=== PATIENT | male | born 2000 | race Caucasian/White ===

== ENCOUNTER 2023-06-13 10:38 | Inpatient (IN) | payer SELFPAY ==
[~2023-06-13] VITALS: Ht 175.3 cm; Wt 92.4 kg
[2023-06-13] MEDS: ONDANSETRON HCL 4 MG/2 ML VIAL IVP ONE (11:00)
[2023-06-13] MEDS: SODIUM CHLORIDE 0.9% 1,000 ML IV ONE ×2 (11:00→12:57)
[2023-06-13 11:11] LABS: BASOPHILS % (AUTO) 0.3 % (0.0-2.0); EOSINOPHILS % (AUTO) 1.1 % (1.0-6.0); HEMATOCRIT 47.2 % (41-53); HEMOGLOBIN 15.6 g/dL (13.5-17.5); LYMPHOCYTES # (AUTO) 1.4 K/uL (1.0-4.8); LYMPHOCYTES % (AUTO) 17.2 % (22.0-44.0); MEAN CORPUSCULAR HEMOGLOBIN 29.5 pg (26.0-34.0); MEAN CORPUSCULAR HGB CONC 33.1 G/dL (31.0-37.0); MEAN CORPUSCULAR VOLUME 89 fL (80-100); MONOCYTES # (AUTO) 0.1 K/uL (0.1-1.0); MONOCYTES % (AUTO) 1.5 % (2.0-9.0); NEUTROPHILS # (AUTO) 6.7 K/uL (1.8-7.7); NEUTROPHILS % (AUTO) 79.9 % (40.0-70.0); PLATELET COUNT (AUTO) 178 K/uL (150-450); RED BLOOD CELL COUNT(AUTO) 5.29 MIL/uL (4.50-5.90); RED CELL DISTRIBUTION WIDTH 12.8 % (11.5-14.5); WHITE BLOOD COUNT (AUTO) 8.4 K/uL (4.5-11.0)
[2023-06-13] MEDS: NALOXONE HCL 1 MG/ML 2 ML SYRINGE IVP ONE ×2 (11:16→14:31)
[2023-06-13 11:21] LABS: ANION GAP 13 mmol/L (8-16); CARBON DIOXIDE 24 mmol/L (22-29); CHLORIDE 104 mmol/L (98-107); CREATININE 1.63 mg/dL (0.60-1.30); GLOMERULAR FILTR. RATE CALC 53 mL/min (>60); GLUCOSE,RANDOM 248 mg/dL (70-110); POTASSIUM 3.3 mmol/L (3.5-5.1); SODIUM SERUM 141 mmol/L (136-145); UREA NITROGEN, BLOOD 19 mg/dL (7-18)
[2023-06-13 11:27] LABS: ALANINE AMINOTRANSFERASE 163 U/L (12-78); ALBUMIN 3.3 g/dL (3.4-5.0); ALKALINE PHOSPHATASE 64 U/L (46-116); ASPARTATE AMINOTRANSFERASE 163 U/L (15-37); BILIRUBIN,TOTAL 0.2 mg/dL (0.1-1.0); TOTAL PROTEIN, SERUM 6.4 g/dL (6.4-8.2)
[2023-06-13 11:29] LABS: ACETAMINOPHEN < 2 mcg/mL (10-30)
[2023-06-13 11:33] LABS: B-TYPE NATRIURETIC PEPTIDE < 5 pg/mL (0-100)
[2023-06-13 11:38] LABS: ALCOHOL, BLOOD (SERUM) < 3 mg/dL (0-10)
[2023-06-13 11:43] LABS: SALICYLATE 1.8 mg/dL (2.8-20.0)
[2023-06-13 11:44] LABS: PH,URINE DRUG SCREEN 6.5 (5.0-8.0)
[2023-06-13 11:59] LABS: ALCOHOL, URINE DRUG SCREEN NEGATIVE (NEGATIVE); AMPHET/METH SCREEN,URINE POSITIVE (NEGATIVE); BARBITURATE SCREEN, URINE NEGATIVE (NEGATIVE); BENZODIAZEPINES SCREEN,URINE NEGATIVE (NEGATIVE); CANNABINOID SCREEN,URINE POSITIVE (NEGATIVE); COCAINE SCREEN,URINE NEGATIVE (NEGATIVE); METHADONE SCREEN, URINE NEGATIVE (NEGATIVE); OPIATE SCREEN,URINE NEGATIVE (NEGATIVE); PHENCYCLIDINE SCREEN,URINE NEGATIVE (NEGATIVE)
[2023-06-13] MEDS: VANCOMYCIN 1GM/WATER(PEG/NADA) 200 ML IV ONE (13:19)
[2023-06-13 14:00] LABS: TROPONIN I-HIGH SENSITIVITY 937 ng/L (<76)
[2023-06-13 14:01] LABS: LACTIC ACID 2.4 mmol/L (0.4-2.0)
[2023-06-13 15:23] LABS: COVID AG,FIA SOURCE NASAL SWAB
[2023-06-13 15:56] LABS: SARS-COV2 (COVID) ANTIGEN,FIA Negative (Negative)
[2023-06-13] MEDS: NALOXONE HCL 0.4 MG/ML VIAL IVP PRN (21:01)
[2023-06-13] MEDS ORDERED: HYDROCODONE/ACETAMINOPHEN 5-325 MG TABLET PO PRN (21:45)
[2023-06-13] MEDS ORDERED: POTASSIUM CHL 10 MEQ/WATER 50 ML IV PRN (21:45)
[2023-06-13] MEDS ORDERED: MORPHINE SULFATE 2 MG/ML SYRINGE IVP PRN (21:45)
[2023-06-13] MEDS ORDERED: MAGNESIUM HYDROXIDE SUSPENSION 30 ML UDCUP PO PRN (21:45)
[2023-06-13] MEDS ORDERED: ALBUTEROL SULFATE 2.5 MG/0.5 ML NEB SOLUTION NEB PRN (21:45)
[2023-06-13] MEDS ORDERED: ONDANSETRON HCL 4 MG/2 ML VIAL IVP PRN (21:45)
[2023-06-13] MEDS ORDERED: ZOLPIDEM TARTRATE 5 MG TABLET PO PRN (21:45)
[2023-06-13] MEDS ORDERED: IPRATROPIUM BROMIDE 0.5 MG/2.5 ML NEB SOLUTION NEB PRN (21:45)
[2023-06-13] MEDS ORDERED: BISACODYL 10 MG RECTAL RECTAL SUPPOSITORY PR PRN (21:45)
[2023-06-13 22:32] LABS: HEMATOCRIT 50.2 % (41-53); HEMOGLOBIN 16.9 g/dL (13.5-17.5); MEAN CORPUSCULAR HEMOGLOBIN 29.5 pg (26.0-34.0); MEAN CORPUSCULAR HGB CONC 33.6 G/dL (31.0-37.0); MEAN CORPUSCULAR VOLUME 88 fL (80-100); PLATELET COUNT (AUTO) 180 K/uL (150-450); RED BLOOD CELL COUNT(AUTO) 5.72 MIL/uL (4.50-5.90); WHITE BLOOD COUNT (AUTO) 18.1 K/uL (4.5-11.0)
[2023-06-13 22:47] LABS: ALANINE AMINOTRANSFERASE 173 U/L (12-78); ALBUMIN 3.6 g/dL (3.4-5.0); ALKALINE PHOSPHATASE 61 U/L (46-116); ANION GAP 10 mmol/L (8-16); ASPARTATE AMINOTRANSFERASE 130 U/L (15-37); BILIRUBIN,TOTAL 0.6 mg/dL (0.1-1.0); CALCIUM, TOTAL 8.9 mg/dL (8.8-10.5); CARBON DIOXIDE 27 mmol/L (22-29); CHLORIDE 103 mmol/L (98-107); CREATININE 1.28 mg/dL (0.60-1.30); GLOMERULAR FILTR. RATE CALC > 60 mL/min (>60); GLUCOSE,RANDOM 83 mg/dL (70-110); POTASSIUM 5.8 mmol/L (3.5-5.1); SODIUM SERUM 140 mmol/L (136-145); TOTAL PROTEIN, SERUM 6.9 g/dL (6.4-8.2); UREA NITROGEN, BLOOD 23 mg/dL (7-18)
[2023-06-13] MEDS: POTASSIUM CHLORIDE 20 MEQ ER TABLET PO PRN (22:54)
[2023-06-13 22:55] LABS: TROPONIN I-HIGH SENSITIVITY 2089 ng/L (<76)
[2023-06-13] MEDS: ONDANSETRON HCL 4 MG/2 ML VIAL IVP PRN (22:55)
[2023-06-13 22:59] LABS: BAND NEUTROPHILS % (MANUAL) 33 % (0-5); EOSINOPHILS % (MANUAL) 1 % (1-6); LYMPHOCYTES % (MANUAL) 4 % (22-44); MONOCYTES % (MANUAL) 2 % (2-9); SEGMENTED NEUTROPHILS % 60 % (40-70); TOTAL CELLS COUNTED 100
[2023-06-13] MEDS: SODIUM ZIRCONIUM CYCLOSILICATE 5 GM POWDER PACKET PO ONE (23:00)
[2023-06-13 23:16] LABS: APPEARANCE,URINE CLEAR (CLEAR); BILIRUBIN,URINE NEGATIVE (NEGATIVE); COLOR,URINE LIGHT YELLOW (YELLOW); GLUCOSE, URINE (UA) NEGATIVE (NEGATIVE); LEUKOCYTE ESTERASE ,URINE NEGATIVE (NEGATIVE); NITRATE,URINE NEGATIVE (NEGATIVE); OCCULT BLOOD,URINE NEGATIVE (NEGATIVE); PROTEIN,URINE NEGATIVE (NEGATIVE); SPECIFIC GRAVITIY, URINE 1.015 (1.003-1.030); UROBILINOGEN,URINE <=1.0 mg/dL (<=1.0)
[2023-06-13] MEDS: PIPERACILLIN/TAZO 3.375 GM/D5W 50 ML IV SCH (23:33)
[2023-06-13] MEDS: HEPARIN SODIUM,PORCINE 5,000 UNITS/ML VIAL IVP ONE (23:57)
[2023-06-14] MEDS ORDERED: HEPARIN SODIUM,PORCINE 5,000 UNITS/ML VIAL SQ SCH
[2023-06-14 00:01] LABS: INR 1.1 (0.9-1.1); PROTHROMBIN TIME 11.4 SEC (9.4-11.6)
[2023-06-14] MEDS: HEPARIN SODIUM 25000 UNITS/D5W 250 ML IV PRN (00:03)
[2023-06-14 00:24] LABS: RED CELL DISTRIBUTION WIDTH 13.1 % (11.5-14.5)
[2023-06-14 00:28] LABS: HEMATOCRIT 49.8 % (41-53); HEMOGLOBIN 16.7 g/dL (13.5-17.5); MEAN CORPUSCULAR HEMOGLOBIN 29.6 pg (26.0-34.0); MEAN CORPUSCULAR HGB CONC 33.5 G/dL (31.0-37.0); MEAN CORPUSCULAR VOLUME 88 fL (80-100); PLATELET COUNT (AUTO) 186 K/uL (150-450); RED BLOOD CELL COUNT(AUTO) 5.63 MIL/uL (4.50-5.90)
[2023-06-14] MEDS ORDERED: NALOXONE HCL 10 MG in DEXTROSE 5%-WATER 240 ML IV PRN (00:30)
[2023-06-14] MEDS: NALOXONE HCL 10 MG in DEXTROSE 5%-WATER 240 ML IV PRN (00:58)
[2023-06-14 01:09] LABS: BAND NEUTROPHILS % (MANUAL) 25 % (0-5); EOSINOPHILS % (MANUAL) 1 % (1-6); LYMPHOCYTES % (MANUAL) 5 % (22-44); MONOCYTES % (MANUAL) 3 % (2-9); SEGMENTED NEUTROPHILS % 66 % (40-70); TOTAL CELLS COUNTED 100
[2023-06-14] MEDS: DiphenhydrAMINE HCL 50 MG/ML VIAL IVP ONE (01:18)
[2023-06-14 05:30] LABS: HEMATOCRIT 44.6 % (41-53); HEMOGLOBIN 15.3 g/dL (13.5-17.5); MEAN CORPUSCULAR HEMOGLOBIN 29.8 pg (26.0-34.0); MEAN CORPUSCULAR HGB CONC 34.4 G/dL (31.0-37.0); MEAN CORPUSCULAR VOLUME 87 fL (80-100); PLATELET COUNT (AUTO) 165 K/uL (150-450); RED BLOOD CELL COUNT(AUTO) 5.14 MIL/uL (4.50-5.90); RED CELL DISTRIBUTION WIDTH 12.9 % (11.5-14.5); WHITE BLOOD COUNT (AUTO) 22.8 K/uL (4.5-11.0)
[2023-06-14] MEDS: SODIUM CHLORIDE 0.9% 500 ML IV ONE (06:43)
[2023-06-14 07:15] LABS: ANION GAP 8 mmol/L (8-16); CALCIUM, TOTAL 8.2 mg/dL (8.8-10.5); CARBON DIOXIDE 27 mmol/L (22-29); CHLORIDE 100 mmol/L (98-107); CREATININE 1.21 mg/dL (0.60-1.30); GLOMERULAR FILTR. RATE CALC > 60 mL/min (>60); GLUCOSE,RANDOM 106 mg/dL (70-110); POTASSIUM 4.3 mmol/L (3.5-5.1); SODIUM SERUM 135 mmol/L (136-145); UREA NITROGEN, BLOOD 20 mg/dL (7-18)
[2023-06-14 07:20] LABS: ALANINE AMINOTRANSFERASE 117 U/L (12-78); ALBUMIN 2.7 g/dL (3.4-5.0); ALKALINE PHOSPHATASE 46 U/L (46-116); ASPARTATE AMINOTRANSFERASE 72 U/L (15-37); BILIRUBIN,TOTAL 0.6 mg/dL (0.1-1.0); TOTAL PROTEIN, SERUM 5.7 g/dL (6.4-8.2)
[2023-06-14 07:25] LABS: TROPONIN I-HIGH SENSITIVITY 995 ng/L (<76)
[2023-06-14] MEDS: DOCUSATE SODIUM 100 MG CAPSULE PO SCH (07:38)
[2023-06-14] MEDS: PANTOPRAZOLE SODIUM 40 MG/VIAL IVP SCH (08:13)
[2023-06-14] MEDS: VANCOMYCIN HCL 1.5 GM in DEXTROSE 5%-WATER 250 ML IV SCH (08:13)
[2023-06-14 09:41] LABS: BAND NEUTROPHILS % (MANUAL) 26 % (0-5); LYMPHOCYTES % (MANUAL) 21 % (22-44); SEGMENTED NEUTROPHILS % 53 % (40-70); TOTAL CELLS COUNTED 100
[2023-06-14 09:42] LABS: RBC MORPHOLOGY COMMENT NORMAL RBC MORPH
[2023-06-14] MEDS: HEPARIN SODIUM,PORCINE 5,000 UNITS/ML VIAL IVP PRN (16:22)
[2023-06-14 17:42] VITALS: BP 96/59; PULSE 70; RESP 16; TEMP 98
[2023-06-14 19:38] VITALS: BP 105/63; PULSE 76; RESP 18; TEMP 98
[2023-06-14] MEDS ORDERED: SODIUM CHLORIDE 0.9% 500 ML IV ONE (20:39)
[2023-06-15 00:12] VITALS: BP 101/60; PULSE 86; RESP 18; TEMP 98.8
[2023-06-15 04:32] VITALS: BP 114/71; PULSE 84; RESP 19; TEMP 98.8
[2023-06-15] MEDS: ACETAMINOPHEN 325 MG TABLET PO PRN (06:20)
[2023-06-15 07:23] LABS: ANION GAP 4 mmol/L (8-16); CALCIUM, TOTAL 8.3 mg/dL (8.8-10.5); CARBON DIOXIDE 29 mmol/L (22-29); CHLORIDE 100 mmol/L (98-107); CREATININE 1.05 mg/dL (0.60-1.30); GLOMERULAR FILTR. RATE CALC > 60 mL/min (>60); GLUCOSE,RANDOM 94 mg/dL (70-110); POTASSIUM 4.1 mmol/L (3.5-5.1); SODIUM SERUM 133 mmol/L (136-145); UREA NITROGEN, BLOOD 14 mg/dL (7-18)
[2023-06-15 07:33] VITALS: BP 103/65; PULSE 77; RESP 19; TEMP 98.3
[2023-06-15 11:48] VITALS: BP 114/61; PULSE 62; RESP 14; TEMP 97.9
[2023-06-15 12:24] LABS: CREATINE KINASE, TOTAL ONLY 168 U/L (39-308)
[2023-06-15 15:23] VITALS: BP 102/62; PULSE 62; RESP 18; TEMP 97.8
[2023-06-15] MEDS ORDERED: SODIUM CHLORIDE 0.9% 500 ML IV ONE (17:48)
[2023-06-15 20:00] VITALS: BP 113/61; PULSE 63; RESP 18; TEMP 98.5
[2023-06-16] VITALS: BP 109/52; PULSE 62; RESP 16; TEMP 98.3
[2023-06-16 04:00] VITALS: PULSE 68
[2023-06-16 09:57] LABS: BASOPHILS % (AUTO) 0.4 % (0.0-2.0); EOSINOPHILS % (AUTO) 1.6 % (1.0-6.0); HEMATOCRIT 45.5 % (41-53); HEMOGLOBIN 15.4 g/dL (13.5-17.5); LYMPHOCYTES # (AUTO) 1.1 K/uL (1.0-4.8); LYMPHOCYTES % (AUTO) 9.4 % (22.0-44.0); MEAN CORPUSCULAR HEMOGLOBIN 29.4 pg (26.0-34.0); MEAN CORPUSCULAR HGB CONC 33.9 G/dL (31.0-37.0); MEAN CORPUSCULAR VOLUME 87 fL (80-100); MONOCYTES # (AUTO) 0.6 K/uL (0.1-1.0); MONOCYTES % (AUTO) 5.2 % (2.0-9.0); NEUTROPHILS # (AUTO) 9.8 K/uL (1.8-7.7); NEUTROPHILS % (AUTO) 83.4 % (40.0-70.0); PLATELET COUNT (AUTO) 150 K/uL (150-450); RED BLOOD CELL COUNT(AUTO) 5.23 MIL/uL (4.50-5.90); RED CELL DISTRIBUTION WIDTH 13.1 % (11.5-14.5); WHITE BLOOD COUNT (AUTO) 11.8 K/uL (4.5-11.0)
[2023-06-16 10:14] LABS: ALANINE AMINOTRANSFERASE 136 U/L (12-78); ALKALINE PHOSPHATASE 64 U/L (46-116); ASPARTATE AMINOTRANSFERASE 53 U/L (15-37); BILIRUBIN,TOTAL 0.6 mg/dL (0.1-1.0); CALCIUM, TOTAL 8.9 mg/dL (8.8-10.5); CARBON DIOXIDE 29 mmol/L (22-29); CREATININE 0.98 mg/dL (0.60-1.30); GLOMERULAR FILTR. RATE CALC > 60 mL/min (>60); GLUCOSE,RANDOM 125 mg/dL (70-110); TOTAL PROTEIN, SERUM 6.9 g/dL (6.4-8.2); UREA NITROGEN, BLOOD 11 mg/dL (7-18); VANCOMYCIN,RANDOM 7.4 mcg/mL (25.0-50.0)
[2023-06-16 10:21] LABS: ANION GAP 8 mmol/L (8-16); CHLORIDE 98 mmol/L (98-107); POTASSIUM 3.7 mmol/L (3.5-5.1); SODIUM SERUM 135 mmol/L (136-145)
[2023-06-16] MEDS: HEPARIN SODIUM,PORCINE 5,000 UNITS/ML VIAL IVP PRN (10:38)
[2023-06-16 11:51] VITALS: BP 120/66; PULSE 74; RESP 18; TEMP 98.2
[2023-06-16] MEDS ORDERED: DOXY-354 PO (13:49)
[2023-06-16] MEDS ORDERED: AMOX1TAB16 PO (13:49)
[2023-06-16] MEDS ORDERED: LISI-660 PO (14:18)
[2023-06-16] MEDS ORDERED: VANCOMYCIN HCL 1.25 GM in DEXTROSE 5%-WATER 250 ML IV SCH (16:00)
== END 2023-06-16 14:35 | disposition home or self-care (01) | DRG 917 ==
LOC: EMS 10:48 → ICUN 21:43 → 5S 06-14 04:52 → UNDOADMIN 06-14 04:52 → 5S 06-14 16:18
PROVIDERS: ADMIT Hospitalist; ATTEND Hospitalist
DX: T40.411A Poisoning by fentanyl or fentanyl analogs, accidental (unintentional), initial encounter (principal); G92.8 Other toxic encephalopathy; I21.4 Non-ST elevation (NSTEMI) myocardial infarction; J69.0 Pneumonitis due to inhalation of food and vomit; J96.01 Acute respiratory failure with hypoxia; I24.9 Acute ischemic heart disease, unspecified; F15.10 Other stimulant abuse, uncomplicated; Z20.822 Contact with and (suspected) exposure to COVID-19; N28.9 Disorder of kidney and ureter, unspecified; Z87.891 Personal history of nicotine dependence; Z88.8 Allergy status to other drugs, medicaments and biological substances; Y92.89 Other specified places as the place of occurrence of the external cause
CPT/HCPCS: 71045; 80048; 80053; 80202; 80307; 81003; 82550; 83605; 83880; 84132; 84484; 85025; 85610; 85730; 87040; 93005; 93306; 99285; C9113; G0480; G0481; J1200; J1644; J2310; J2405; J2543; J3370; J7030; J7040; J7060; Q9967; 36415-L1; 36415-TC; J7613